=== PATIENT | male | born 1990 | race Caucasian/White ===

== ENCOUNTER 2016-10-27 08:41 | Emergency (ER) | payer BC, OTHER ==
[2016-10-27] MEDS ORDERED: KETOROLAC 30 MG/ML VIAL (J1885) As Ordered ONE (09:35)
[2016-10-27] MEDS ORDERED: ONDANSETRON 4MG/2ML VIAL (J2405) As Ordered ONE (09:35)
[2016-10-27 09:54] LABS: BASO % 0.7 % (0.0-1.0); EOS # 0.8 K/mm3 (0.0-0.50); EOS % 15.2 % (0.0-3.0); LARGE UNSTAINED CELL # 0.1 K/mm3 (0.0-0.4); LARGE UNSTAINED CELL % 2.4 % (0.0-4.0); LYMPH # 1.6 K/mm3 (1.5-6.5); MEAN CORPUSCULAR HEMOGLOBIN 30.3 pg (27.0-33.0); MEAN CORPUSCULAR HGB CONC 33.2 g/dl (32.0-36.5); MEAN CORPUSCULAR VOLUME 91.3 fl (80.0-96.0); MONO # 0.3 K/mm3 (0.0-0.8); NEUTROPHILS # 2.7 K/mm3 (1.8-7.7); NEUTROPHILS % 47.8 % (36.0-66.0); PLATELET COUNT, AUTOMATED 286 k/mm3 (150-450); WHITE BLOOD COUNT 5.6 K/mm3 (4.0-10.0)
--- NOTE | 2016-10-27 09:55 | REP ---
Clinical: Renal colic. Comparison: 08/18/2013. Findings: Lung bases clear. Liver, spleen, pancreas, gallbladder, bilateral adrenal glands and right kidney are normal. The left kidney demonstrates few punctate 1 mm nonobstructing renal calculi. There is no evidence for perinephric stranding or hydroureteronephrosis bilaterally. The enteric system is without obstruction or acute inflammatory process. The pelvis demonstrates normal bladder and age appropriate prostate/seminal vesicles. Multiple calcifications in the pelvis are similar to 2013 and likely represent phleboliths. No ascites. No obvious adenopathy. No free air. Surrounding musculoskeletal structures are intact. Impression: 1. Few 1 mm nonobstructing left renal calculi. No further urinary tract pathology appreciated. 2. Multiple rounded calcifications in the pelvis are similar 2013 and likely represent phleboliths. 3. No acute abdominopelvic pathology appreciated. Signed by Walter Figueroa MD 10/27/2016 09:46 A
[2016-10-27 10:20] LABS: ANION GAP 5 MEQ/L (8-16); BLOOD UREA NITROGEN 24 MG/DL (7-18); CALCIUM LEVEL 9.2 MG/DL (8.5-10.1); CARBON DIOXIDE LEVEL 31 MEQ/L (21-32); CHLORIDE LEVEL 107 MEQ/L (98-107); CREATININE FOR GFR 1.12 MG/DL (0.70-1.30); GLOMERULAR FILTRATION RATE > 60.0 (>60); GLUCOSE, FASTING 94 MG/DL (70-105); SODIUM LEVEL 143 MEQ/L (136-145)
--- NOTE | 2016-10-27 10:54 | EDDOCDS ---
Physician Documentation [facility] Name: Sharath Chen Age: 26 yrs Sex: Male : 1990 Arrival Date: 10/27/2016 Time: 08:41 Bed I2 / M2 Private MD: Unknown, Family Dr Disposition: 10/27/16 10:32 Discharged to Home/Self Care. Impression: Low back pain - with few 1mm Left Renal Calculi. - Condition is Stable. - Discharge Instructions: Back Pain, Adult, [id number]. - Prescriptions for Ibuprofen 800 mg Oral Tablet - take 1 tablet by ORAL route every 8 hours As needed take with food; 30 tablet. Zanaflex 4 mg Oral Tablet - take 1 tablet by ORAL route At bedtime As needed; 10 tablet. - Medication Reconciliation, Work Release Form - 2 day, Local Pharmacy Hours form. - Follow up: [facility]; When: 4 - 5 days; Reason: Continuance of care. Follow up: [facility]; When: 1 week; Reason: Recheck today's complaints, Continuance of care. Follow up: Emergency Department; When: As needed; Reason: Worsening of conditions. - Problem is new. - Symptoms are unchanged. Historical: - Allergies: no known allergies; - Home Meds: 1. none - PMHx: Kidney stones; - PSHx: none; - Social history: Smoking status: Patient states was never smoker of tobacco. No barriers to communication noted, The patient speaks fluent Latvian, Speaks appropriately for age. - Family history: Not pertinent. - : The pt / caregiver states he / she is not on anticoagulants. Home medication list is obtained from the patient. - Exposure Risk Screening:: None identified. Vital Signs: 10/27 08:43 BP 109 / 68; Pulse 75; Resp 16; Temp 98(O); Pulse Ox 97% ; Weight 79.38 kg / 175 lbs cmb (R); Height 5 ft. 11 in. (180.34 cm); Pain 7/10; 10:30 BP 104 / 57; Pulse 59; Resp 18; Temp 97.2(O); Pulse Ox 98% on R/A; Pain 5/10; dem1 08:43 Body Mass Index 24.41 (79.38 kg, 180.34 cm) cmb MDM: 09:23 Ondansetron 4 mg IVP once ordered. dk1 09:23 ketorolac 30 mg IVP once ordered. dk1 09:23 IV Saline Lock ordered. dk1 09:24 Basic Metabolic Profile Ordered. EDMS 09:25 CBC with Diff Ordered. EDMS 09:25 Urinalysis Ordered. EDMS 09:25 Urine Culture Ordered. EDMS 09:25 CT ABD & PELVIS: No Contrast Ordered. EDMS 09:31 Financial registration complete. lg 09:55 Urinalysis Reviewed. dk1 09:55 [facility] Payment Agreement was scanned into [facility] and attached to record. lg 10:28 Basic Metabolic Profile Reviewed. dk1 10:28 CBC with Diff Reviewed. dk1 10:28 CT ABD & PELVIS: No Contrast Reviewed. dk1 Administered Medications: 09:46 Drug: Ondansetron 4 mg [ondansetron HCl 2 mg/mL intravenous solution (2 mL)] Route: dls IVP; Site: right antecubital; 09:46 Drug: ketorolac 30 mg [ketorolac 30 mg/mL (1 mL) injection solution (1 mL)] Route: IVP; dls Site: right antecubital; Signatures: Dispatcher [employer] EDMS Ellen Paniagua RN RN dls Evans Marcum, Adebayo Reg lg Franklin Javier RN RN mlb1 Mandeep Morillo PA-C PA-C dk1 The chart was reviewed and I authenticate all verbal orders and agree with the evaluation and treatment provided.Attachments: 09:55 [facility] Payment Agreement lg MTDD
--- NOTE | 2016-10-27 10:54 | EDDOCDS ---
Nurse's Notes [facility] Name: Sharath Chen Age: 26 yrs Sex: Male : 1990 Arrival Date: 10/27/2016 Time: 08:41 Bed I2 / M2 Private MD: Unknown, Family Dr Diagnosis: Low back pain-with few 1mm Left Renal Calculi Presentation: 10/27 08:51 Presenting complaint: Patient states: Right low back pain "on and off for the past few mlb1 weeks". Adult Sepsis Screening: The patient does not have new or worsening altered mentation. Patient's respiratory rate is less than 22. Systolic blood pressure is greater than 100. Patient has a qSOFA score of 0- Negative Sepsis Screen. Suicide/Homicide risk assessment- the patient denies having any suicidal and/or homicidal ideations and does not present with any other emotional, behavioral or mental health complaints. Status: Patient is not a service writer or dependent. Transition of care: patient was not received from another setting of care. 08:51 Acuity: NEVAEH Level 4 mlb1 08:51 Method Of Arrival: Walkin/Carried/Asstd mlb1 Triage Assessment: 08:52 General: Appears in no apparent distress, comfortable, Behavior is appropriate for age, mlb1 cooperative. Pain: Location: right low back Pain currently is 7 out of 10 on a pain scale. HIV screening NA for this visit Offered previously. Historical: - Allergies: no known allergies; - Home Meds: 1. none - PMHx: Kidney stones; - PSHx: none; - Social history: Smoking status: Patient states was never smoker of tobacco. No barriers to communication noted, The patient speaks fluent Uzbek, Speaks appropriately for age. - Family history: Not pertinent. - : The pt / caregiver states he / she is not on anticoagulants. Home medication list is obtained from the patient. - Exposure Risk Screening:: None identified. Screenin:48 Screening information is obtained from the patient. Primary language is Uzbek. Fall dls risk: No risks identified. Assistance ADL's: requires no assistance with activities of daily living. Abuse/DV Screen: The patient / caregiver reports he/she is: not in a situation that causes fear, pain or injury. Nutritional screening: No deficits noted. Advance Directives: Currently, there is no health care proxy. There is no active DNR order. There is no living will. There is no Power of Boring Machine Operator Vertical. home support is adequate. Assessment: 09:48 General: Appears slender, uncomfortable, well developed, well nourished, well groomed, dls Behavior is cooperative. Awake, alert, oriented. Skin warm and dry. Moves all extremities. Bilateral breath sounds clear. Respirations unlabored. Abdomen soft, non-tender. No apparent distress. The patient / caregiver is instructed regarding the plan of care and ED course. Vital Signs: 08:43 BP 109 / 68; Pulse 75; Resp 16; Temp 98(O); Pulse Ox 97% ; Weight 79.38 kg (R); Height cmb 5 ft. 11 in. (180.34 cm); Pain 7/10; 10:30 BP 104 / 57; Pulse 59; Resp 18; Temp 97.2(O); Pulse Ox 98% on R/A; Pain 5/10; dem1 08:43 Body Mass Index 24.41 (79.38 kg, 180.34 cm) cmb Vitals: 08:43 Log In Time: October 27, 2016 at 08:41. cmb ED Course: 08:42 Patient visited by Gunjan Silverio. cmb 08:42 Patient moved to Waiting cmb 08:43 Unknown, Family is Private Physician. cmb 08:44 Patient moved to Pre RCE cmb 08:52 Triage Initiated mlb1 08:53 Patient visited by Franklin Javier RN. mlb1 08:53 Patient moved to Triage 2 mlb1 09:14 [facility] Mor[facility]. dk1 09:14 Jose Martinez MD is Attending Physician. dk1 09:19 Patient visited by Mandeep Morillo PA-C. dk1 09:29 Urinalysis Sent. mlb1 09:30 Patient moved to I2 / M2 mlb1 09:30 Urine Culture Sent. mlb1 09:46 Basic Metabolic Profile Sent. dls 09:46 CBC with Diff Sent. dls 09:48 Patient has correct armband on for positive identification. Placed in gown. Bed in low dls position. Call light in reach. 09:49 Inserted saline lock: 20 gauge in right antecubital area and blood collected. The dls patient tolerated the procedure well. No procedures done that require assistance. Labs drawn. (by ED staff). 09:55 [facility] [place] Agreement was scanned into [employer] and attached to record. lg 09:56 CT ABD & PELVIS: No Contrast Returned. EDMS 10:27 Patient visited by Gonzalo Ramirez. dem1 10:30 Patient visited by Gonzalo Ramirez. dem1 10:32 [facility] is Referral Physician. dk1 10:32 [facility] is Referral Physician. dk1 10:52 Discontinued IV lock intact, bleeding controlled, pressure dressing applied, No dls redness/swelling at site. Administered Medications: 09:46 Drug: Ondansetron 4 mg [ondansetron HCl 2 mg/mL intravenous solution (2 mL)] Route: dls IVP; Site: right antecubital; 09:46 Drug: ketorolac 30 mg [ketorolac 30 mg/mL (1 mL) injection solution (1 mL)] Route: IVP; dls Site: right antecubital; Order Results: Lab Order: Basic Metabolic Profile; SPEC'M 10/27/16 09:38 Test: GLUCOSE, FASTING; Value: 94; Range: 70-105; Units: MG/DL; Status: F Test: BLOOD UREA NITROGEN; Value: 24; Range: 7-18; Abnormal: Above high normal; Units: MG/DL; Status: F Test: CREATININE FOR GFR; Value: 1.12; Range: 0.70-1.30; Units: MG/DL; Status: F Test: GLOMERULAR FILTRATION RATE; Value: > 60.0; Range: >60; Status: F Test: SODIUM LEVEL; Value: 143; Range: 136-145; Units: MEQ/L; Status: F Test: POTASSIUM SERUM; Value: 5.0; Range: 3.5-5.1; Units: MEQ/L; Status: F Test: CHLORIDE LEVEL; Value: 107; Range: 98-107; Units: MEQ/L; Status: F Test: CARBON DIOXIDE LEVEL; Value: 31; Range: 21-32; Units: MEQ/L; Status: F Test: ANION GAP; Value: 5; Range: 8-16; Abnormal: Below low normal; Units: MEQ/L; Status: F Test: CALCIUM LEVEL; Value: 9.2; Range: 8.5-10.1; Units: MG/DL; Status: F Test Note: ; Units are mL/min/1.73 m2 Chronic Kidney Disease Staging per NKF: Stage I & II GFR >=60 Normal to Mildly Decreased Stage III GFR 30-59 Moderately Decreased Stage IV GFR 15-29 Severely Decreased Stage V GFR <15 Very Little GFR Left ESRD GFR <15 on CERTIFIED SUBSTANCE ABUSE COUNSELOR Lab Order: CBC with Diff; TASNEEM'M 10/27/16 09:38 Test: WHITE BLOOD COUNT; Value: 5.6; Range: 4.0-10.0; Units: K/mm3; Status: F Test: RED BLOOD COUNT; Value: 5.08; Range: 4.30-6.10; Units: M/mm3; Status: F Test: HEMOGLOBIN; Value: 15.4; Range: 14.0-18.0; Units: g/dl; Status: F Test: HEMATOCRIT; Value: 46.4; Range: 42.0-52.0; Units: %; Status: F Test: MEAN CORPUSCULAR VOLUME; Value: 91.3; Range: 80.0-96.0; Units: fl; Status: F Test: MEAN CORPUSCULAR HEMOGLOBIN; Value: 30.3; Range: 27.0-33.0; Units: pg; Status: F Test: MEAN CORPUSCULAR HGB CONC; Value: 33.2; Range: 32.0-36.5; Units: g/dl; Status: F Test: RED CELL DISTRIBUTION WIDTH; Value: 12.0; Range: 11.5-14.5; Units: %; Status: F Test: PLATELET COUNT, AUTOMATED; Value: 286; Range: 150-450; Units: k/mm3; Status: F Test: NEUTROPHILS %; Value: 47.8; Range: 36.0-66.0; Units: %; Status: F Test: LYMPH %; Value: 28.0; Range: 24.0-44.0; Units: %; Status: F Test: MONO %; Value: 6.0; Range: 0.0-5.0; Abnormal: Above high normal; Units: %; Status: F Test: EOS %; Value: 15.2; Range: 0.0-3.0; Abnormal: Above high normal; Units: %; Status: F Test: BASO %; Value: 0.7; Range: 0.0-1.0; Units: %; Status: F Test: LARGE UNSTAINED CELL %; Value: 2.4; Range: 0.0-4.0; Units: %; Status: F Test: NEUTROPHILS #; Value: 2.7; Range: 1.8-7.7; Units: K/mm3; Status: F Test: LYMPH #; Value: 1.6; Range: 1.5-6.5; Units: K/mm3; Status: F Test: MONO #; Value: 0.3; Range: 0.0-0.8; Units: K/mm3; Status: F Test: EOS #; Value: 0.8; Range: 0.0-0.50; Abnormal: Above high normal; Units: K/mm3; Status: F Test: BASO #; Value: 0.0; Range: 0.0-0.2; Units: K/mm3; Status: F Test: LARGE UNSTAINED CELL #; Value: 0.1; Range: 0.0-0.4; Units: K/mm3; Status: F Lab Order: Urinalysis; SPEC'M 10/27/16 09:26 Test: APPEARANCE, URINE; Value: CLEAR; Range: CLEAR; Status: F Test: COLOR, URINE; Value: YELLOW; Range: YELLOW; Status: F Test: PH,URINE; Value: 7.0; Range: 5.0-9.0; Units: UNITS; Status: F Test: SPECIFIC GRAVITY URINE AUTO; Value: 1.020; Range: 1.002-1.035; Status: F Test: PROTEIN, URINE AUTO; Value: NEGATIVE; Range: NEGATIVE; Units: mg/dL; Status: F Test: GLUCOSE, URINE (UA) AUTO; Value: NEGATIVE; Range: NEGATIVE; Units: mg/dL; Status: F Test: KETONE, URINE AUTO; Value: NEGATIVE; Range: NEGATIVE; Units: mg/dL; Status: F Test: UROBILINOGEN, URINE AUTO; Value: 0.2; Range: 0.0-2.0; Units: mg/dL; Status: F Test: BILIRUBIN, URINE AUTO; Value: NEGATIVE; Range: NEGATIVE; Status: F Test: NITRITE, URINE AUTO; Value: NEGATIVE; Range: NEGATIVE; Status: F Test: LEUKOCYTE ESTERASE, URINE AUTO; Value: NEGATIVE; Range: NEGATIVE; Status: F Test: BLOOD, URINE BLOOD; Value: NEGATIVE; Range: NEGATIVE; Status: F Test: WBC, URINE AUTO; Value: 0; Range: 0-3; Units: /HPF; Status: F Test: RBC, URINE AUTO; Value: 1; Range: 0-3; Units: /HPF; Status: F Test: BACTERIA, URINE AUTO; Value: NEGATIVE; Range: NEGATIVE; Status: F Test: SQUAMOUS EPITHELIAL CELL UR AU; Value: 0; Range: 0-6; Units: /HPF; Status: F Test: HYALINE CAST, URINE AUTO; Value: 0; Range: 0-1; Units: /LPF; Status: F Radiology Order: CT ABD & PELVIS: No Contrast Test: CT ABD & PELVIS: No Contrast REASON FOR EXAMINATION: Renal colic; Clinical: Renal colic.; ; Comparison: 08/18/2013.; ; Findings:; Lung bases clear.; ; Liver, spleen, pancreas, gallbladder, bilateral adrenal glands and right kidney; are normal. The left kidney demonstrates few punctate 1 mm nonobstructing renal; calculi. There is no evidence for perinephric stranding or hydroureteronephrosis; bilaterally. The enteric system is without obstruction or acute inflammatory; process. The pelvis demonstrates normal bladder and age appropriate; prostate/seminal vesicles. Multiple calcifications in the pelvis are similar to; 2012 and likely represent phleboliths. No ascites. No obvious adenopathy. No; free air. Surrounding musculoskeletal structures are intact.; ; Impression:; 1. Few 1 mm nonobstructing left renal calculi. No further urinary tract; pathology appreciated.; 2. Multiple rounded calcifications in the pelvis are similar 2012 and likely; represent phleboliths.; 3. No acute abdominopelvic pathology appreciated.; ; ; Signed by; Walter Figueroa MD 10/27/2016 09:46 A; Outcome: 10:32 Discharge ordered by Provider. dk1 10:52 Discharge Assessment: Patient awake, alert and oriented x 3. No cognitive and/or dls functional deficits noted. Patient verbalized understanding of disposition instructions. patient administered narcotics - no. The following High Risk Discharge criteria are identified: None. Discharged to home ambulatory. Condition: stable. Discharge instructions given to patient, Instructed on discharge instructions, follow up and referral plans. medication usage, Demonstrated understanding of instructions, medications, Pt was receptive of discharge instructions/ teaching. Prescriptions given X 2, Work note provided to patient. CT Study completed. Property sent home with patient. 10:54 Patient left the ED. dls Signatures: Dispatcher [employer] EDMS Ellen Paniagua, RN RN dls Evans Marcum, Adebayo Reg lg Franklin Javier RN RN mlb1 Mandeep Morillo, PA-C PA-C aidee1 Gonzalo Ramirez1 Gunjan Silverio MTDD
--- NOTE | 2016-10-29 11:55 | EDDOCDS ---
Physician Documentation [facility] Name: Sharath Chen Age: 26 yrs Sex: Male : 1990 Arrival Date: 10/27/2016 Time: 08:41 Bed I2 / M2 Private MD: Unknown, Family Dr Disposition: 10/27/16 10:32 Discharged to Home/Self Care. Impression: Low back pain - with few 1mm Left Renal Calculi. - Condition is Stable. - Discharge Instructions: Back Pain, Adult, [id number]. - Prescriptions for Ibuprofen 800 mg Oral Tablet - take 1 tablet by ORAL route every 8 hours As needed take with food; 30 tablet. Zanaflex 4 mg Oral Tablet - take 1 tablet by ORAL route At bedtime As needed; 10 tablet. - Medication Reconciliation, Work Release Form - 2 day, Local Pharmacy Hours form. - Follow up: [facility]; When: 4 - 5 days; Reason: Continuance of care. Follow up: [facility]; When: 1 week; Reason: Recheck today's complaints, Continuance of care. Follow up: Emergency Department; When: As needed; Reason: Worsening of conditions. - Problem is new. - Symptoms are unchanged. Historical: - Allergies: no known allergies; - Home Meds: 1. none - PMHx: Kidney stones; - PSHx: none; - Social history: Smoking status: Patient states was never smoker of tobacco. No barriers to communication noted, The patient speaks fluent Korean, Speaks appropriately for age. - Family history: Not pertinent. - : The pt / caregiver states he / she is not on anticoagulants. Home medication list is obtained from the patient. - Exposure Risk Screening:: None identified. Vital Signs: 10/27 08:43 BP 109 / 68; Pulse 75; Resp 16; Temp 98(O); Pulse Ox 97% ; Weight 79.38 kg / 175 lbs cmb (R); Height 5 ft. 11 in. (180.34 cm); Pain 7/10; 10:30 BP 104 / 57; Pulse 59; Resp 18; Temp 97.2(O); Pulse Ox 98% on R/A; Pain 5/10; dem1 08:43 Body Mass Index 24.41 (79.38 kg, 180.34 cm) cmb MDM: 09:23 Ondansetron 4 mg IVP once ordered. dk1 09:23 ketorolac 30 mg IVP once ordered. dk1 09:23 IV Saline Lock ordered. dk1 09:24 Basic Metabolic Profile Ordered. EDMS 09:25 CBC with Diff Ordered. EDMS 09:25 Urinalysis Ordered. EDMS 09:25 Urine Culture Ordered. EDMS 09:25 CT ABD & PELVIS: No Contrast Ordered. EDMS 09:31 Financial registration complete. lg 09:55 Urinalysis Reviewed. dk1 09:55 [facility] Payment Agreement was scanned into [employer] and attached to record. lg 10:28 Basic Metabolic Profile Reviewed. dk1 10:28 CBC with Diff Reviewed. dk1 10:28 CT ABD & PELVIS: No Contrast Reviewed. dk1 15:58 T-Sheet-- Draft Copy was scanned into [employer] and attached to record. klr Administered Medications: 09:46 Drug: Ondansetron 4 mg [ondansetron HCl 2 mg/mL intravenous solution (2 mL)] Route: dls IVP; Site: right antecubital; 09:46 Drug: ketorolac 30 mg [ketorolac 30 mg/mL (1 mL) injection solution (1 mL)] Route: IVP; dls Site: right antecubital; Signatures: [facility] Ellen Zhu RN RN Evans Tejeda Reg Reg lg Barney, Michael B RN RN mlb1 Mandeep Morillo, SHER PANuha Nuñez The chart was reviewed and I authenticate all verbal orders and agree with the evaluation and treatment provided.Attachments: 09:55 [facility] Payment Agreement lg 15:58 T-Sheet-- Draft Copy klr Chart Complete MTDD
--- NOTE | 2016-10-29 11:55 | EDDOCDS ---
Nurse's Notes [facility] Name: Sharath Chen Age: 26 yrs Sex: Male : 1990 Arrival Date: 10/27/2016 Time: 08:41 Bed I2 / M2 Private MD: Unknown, Family Dr Diagnosis: Low back pain-with few 1mm Left Renal Calculi Presentation: 10/27 08:51 Presenting complaint: Patient states: Right low back pain "on and off for the past few mlb1 weeks". Adult Sepsis Screening: The patient does not have new or worsening altered mentation. Patient's respiratory rate is less than 22. Systolic blood pressure is greater than 100. Patient has a qSOFA score of 0- Negative Sepsis Screen. Suicide/Homicide risk assessment- the patient denies having any suicidal and/or homicidal ideations and does not present with any other emotional, behavioral or mental health complaints. 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 Transition of care: patient was not received from another setting of care. 08:51 Acuity: NEVAEH Level 4 mlb1 08:51 Method Of Arrival: Walkin/Carried/Asstd mlb1 Triage Assessment: 08:52 General: Appears in no apparent distress, comfortable, Behavior is appropriate for age, mlb1 cooperative. Pain: Location: right low back Pain currently is 7 out of 10 on a pain scale. HIV screening NA for this visit Offered previously. Historical: - Allergies: no known allergies; - Home Meds: 1. none - PMHx: Kidney stones; - PSHx: none; - Social history: Smoking status: Patient states was never smoker of tobacco. No barriers to communication noted, The patient speaks fluent Pashto, Speaks appropriately for age. - Family history: Not pertinent. - : The pt / caregiver states he / she is not on anticoagulants. Home medication list is obtained from the patient. - Exposure Risk Screening:: None identified. Screenin:48 Screening information is obtained from the patient. Primary language is Pashto. Fall dls risk: No risks identified. Assistance ADL's: requires no assistance with activities of daily living. Abuse/DV Screen: The patient / caregiver reports he/she is: not in a situation that causes fear, pain or injury. Nutritional screening: No deficits noted. Advance Directives: Currently, there is no health care proxy. There is no active DNR order. There is no living will. 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 home support is adequate. Assessment: 09:48 General: Appears slender, uncomfortable, well developed, well nourished, well groomed, dls Behavior is cooperative. Awake, alert, oriented. Skin warm and dry. Moves all extremities. Bilateral breath sounds clear. Respirations unlabored. Abdomen soft, non-tender. No apparent distress. The patient / caregiver is instructed regarding the plan of care and ED course. Vital Signs: 08:43 BP 109 / 68; Pulse 75; Resp 16; Temp 98(O); Pulse Ox 97% ; Weight 79.38 kg (R); Height cmb 5 ft. 11 in. (180.34 cm); Pain 7/10; 10:30 BP 104 / 57; Pulse 59; Resp 18; Temp 97.2(O); Pulse Ox 98% on R/A; Pain 5/10; dem1 08:43 Body Mass Index 24.41 (79.38 kg, 180.34 cm) cmb Vitals: 08:43 Log In Time: October 27, 2016 at 08:41. cmb ED Course: 08:42 Patient visited by Gunjan Silverio. cmb 08:42 Patient moved to Waiting cmb 08:43 Unknown, Family is Private Physician. cmb 08:44 Patient moved to Pre RCE cmb 08:52 Triage Initiated mlb1 08:53 Patient visited by Franklin Javier RN. mlb1 08:53 Patient moved to Triage 2 mlb1 09:14 [facility] dk1 09:14 Jose Martinez MD is Attending Physician. dk1 09:19 Patient visited by Mandeep Morillo PA-C. dk1 09:29 Urinalysis Sent. mlb1 09:30 Patient moved to I2 / M2 mlb1 09:30 Urine Culture Sent. mlb1 09:46 Basic Metabolic Profile Sent. dls 09:46 CBC with Diff Sent. dls 09:48 Patient has correct armband on for positive identification. Placed in gown. Bed in low dls position. Call light in reach. 09:49 Inserted saline lock: 20 gauge in right antecubital area and blood collected. The dls patient tolerated the procedure well. No procedures done that require assistance. Labs drawn. (by ED staff). 09:55 [facility] Payment Agreement was scanned into CRMnext and attached to record. lg 09:56 CT ABD & PELVIS: No Contrast Returned. EDMS 10:27 Patient visited by Gonzalo Ramirez. dem1 10:30 Patient visited by Gonzalo Ramirez. dem1 10:32 [facility] is Referral Physician. dk1 10:32 [facility] is Referral Physician. dk1 10:52 Discontinued IV lock intact, bleeding controlled, pressure dressing applied, No dls redness/swelling at site. 15:58 T-Sheet-- Draft Copy was scanned into CRMnext and attached to record. klr Administered Medications: 09:46 Drug: Ondansetron 4 mg [ondansetron HCl 2 mg/mL intravenous solution (2 mL)] Route: dls IVP; Site: right antecubital; 09:46 Drug: ketorolac 30 mg [ketorolac 30 mg/mL (1 mL) injection solution (1 mL)] Route: IVP; dls Site: right antecubital; Order Results: Lab Order: Basic Metabolic Profile; SPEC'M 10/27/16 09:38 Test: GLUCOSE, FASTING; Value: 94; Range: 70-105; Units: MG/DL; Status: F Test: BLOOD UREA NITROGEN; Value: 24; Range: 7-18; Abnormal: Above high normal; Units: MG/DL; Status: F Test: CREATININE FOR GFR; Value: 1.12; Range: 0.70-1.30; Units: MG/DL; Status: F Test: GLOMERULAR FILTRATION RATE; Value: > 60.0; Range: >60; Status: F Test: SODIUM LEVEL; Value: 143; Range: 136-145; Units: MEQ/L; Status: F Test: POTASSIUM SERUM; Value: 5.0; Range: 3.5-5.1; Units: MEQ/L; Status: F Test: CHLORIDE LEVEL; Value: 107; Range: 98-107; Units: MEQ/L; Status: F Test: CARBON DIOXIDE LEVEL; Value: 31; Range: 21-32; Units: MEQ/L; Status: F Test: ANION GAP; Value: 5; Range: 8-16; Abnormal: Below low normal; Units: MEQ/L; Status: F Test: CALCIUM LEVEL; Value: 9.2; Range: 8.5-10.1; Units: MG/DL; Status: F Test Note: ; Units are mL/min/1.73 m2 Chronic Kidney Disease Staging per NKF: Stage I & II GFR >=60 Normal to Mildly Decreased Stage III GFR 30-59 Moderately Decreased Stage IV GFR 15-29 Severely Decreased Stage V GFR <15 Very Little GFR Left ESRD GFR <15 on RECONCILIATION COORDINATOR Lab Order: CBC with Diff; SPEC'M 10/27/16 09:38 Test: WHITE BLOOD COUNT; Value: 5.6; Range: 4.0-10.0; Units: K/mm3; Status: F Test: RED BLOOD COUNT; Value: 5.08; Range: 4.30-6.10; Units: M/mm3; Status: F Test: HEMOGLOBIN; Value: 15.4; Range: 14.0-18.0; Units: g/dl; Status: F Test: HEMATOCRIT; Value: 46.4; Range: 42.0-52.0; Units: %; Status: F Test: MEAN CORPUSCULAR VOLUME; Value: 91.3; Range: 80.0-96.0; Units: fl; Status: F Test: MEAN CORPUSCULAR HEMOGLOBIN; Value: 30.3; Range: 27.0-33.0; Units: pg; Status: F Test: MEAN CORPUSCULAR HGB CONC; Value: 33.2; Range: 32.0-36.5; Units: g/dl; Status: F Test: RED CELL DISTRIBUTION WIDTH; Value: 12.0; Range: 11.5-14.5; Units: %; Status: F Test: PLATELET COUNT, AUTOMATED; Value: 286; Range: 150-450; Units: k/mm3; Status: F Test: NEUTROPHILS %; Value: 47.8; Range: 36.0-66.0; Units: %; Status: F Test: LYMPH %; Value: 28.0; Range: 24.0-44.0; Units: %; Status: F Test: MONO %; Value: 6.0; Range: 0.0-5.0; Abnormal: Above high normal; Units: %; Status: F Test: EOS %; Value: 15.2; Range: 0.0-3.0; Abnormal: Above high normal; Units: %; Status: F Test: BASO %; Value: 0.7; Range: 0.0-1.0; Units: %; Status: F Test: LARGE UNSTAINED CELL %; Value: 2.4; Range: 0.0-4.0; Units: %; Status: F Test: NEUTROPHILS #; Value: 2.7; Range: 1.8-7.7; Units: K/mm3; Status: F Test: LYMPH #; Value: 1.6; Range: 1.5-6.5; Units: K/mm3; Status: F Test: MONO #; Value: 0.3; Range: 0.0-0.8; Units: K/mm3; Status: F Test: EOS #; Value: 0.8; Range: 0.0-0.50; Abnormal: Above high normal; Units: K/mm3; Status: F Test: BASO #; Value: 0.0; Range: 0.0-0.2; Units: K/mm3; Status: F Test: LARGE UNSTAINED CELL #; Value: 0.1; Range: 0.0-0.4; Units: K/mm3; Status: F Lab Order: Urinalysis; SPEC'M 10/27/16 09:26 Test: APPEARANCE, URINE; Value: CLEAR; Range: CLEAR; Status: F Test: COLOR, URINE; Value: YELLOW; Range: YELLOW; Status: F Test: PH,URINE; Value: 7.0; Range: 5.0-9.0; Units: UNITS; Status: F Test: SPECIFIC GRAVITY URINE AUTO; Value: 1.020; Range: 1.002-1.035; Status: F Test: PROTEIN, URINE AUTO; Value: NEGATIVE; Range: NEGATIVE; Units: mg/dL; Status: F Test: GLUCOSE, URINE (UA) AUTO; Value: NEGATIVE; Range: NEGATIVE; Units: mg/dL; Status: F Test: KETONE, URINE AUTO; Value: NEGATIVE; Range: NEGATIVE; Units: mg/dL; Status: F Test: UROBILINOGEN, URINE AUTO; Value: 0.2; Range: 0.0-2.0; Units: mg/dL; Status: F Test: BILIRUBIN, URINE AUTO; Value: NEGATIVE; Range: NEGATIVE; Status: F Test: NITRITE, URINE AUTO; Value: NEGATIVE; Range: NEGATIVE; Status: F Test: LEUKOCYTE ESTERASE, URINE AUTO; Value: NEGATIVE; Range: NEGATIVE; Status: F Test: BLOOD, URINE BLOOD; Value: NEGATIVE; Range: NEGATIVE; Status: F Test: WBC, URINE AUTO; Value: 0; Range: 0-3; Units: /HPF; Status: F Test: RBC, URINE AUTO; Value: 1; Range: 0-3; Units: /HPF; Status: F Test: BACTERIA, URINE AUTO; Value: NEGATIVE; Range: NEGATIVE; Status: F Test: SQUAMOUS EPITHELIAL CELL UR AU; Value: 0; Range: 0-6; Units: /HPF; Status: F Test: HYALINE CAST, URINE AUTO; Value: 0; Range: 0-1; Units: /LPF; Status: F Lab Order: Urine Culture; SPEC'M 10/27/16 09:26 Test: URINE CULTURE; Value: <EXTERNAL COMMENT eCWMed> FULL REPORT IN LAB NOTES (eCW and Medent).; Status: F Test: URINE CULTURE; Value: URINE CULTURE RESULT NO GROWTH; Status: F Radiology Order: CT ABD & PELVIS: No Contrast Test: CT ABD & PELVIS: No Contrast REASON FOR EXAMINATION: Renal colic; Clinical: Renal colic.; ; Comparison: 08/18/2013.; ; Findings:; Lung bases clear.; ; Liver, spleen, pancreas, gallbladder, bilateral adrenal glands and right kidney; are normal. The left kidney demonstrates few punctate 1 mm nonobstructing renal; calculi. There is no evidence for perinephric stranding or hydroureteronephrosis; bilaterally. The enteric system is without obstruction or acute inflammatory; process. The pelvis demonstrates normal bladder and age appropriate; prostate/seminal vesicles. Multiple calcifications in the pelvis are similar to; 2012 and likely represent phleboliths. No ascites. No obvious adenopathy. No; free air. Surrounding musculoskeletal structures are intact.; ; Impression:; 1. Few 1 mm nonobstructing left renal calculi. No further urinary tract; pathology appreciated.; 2. Multiple rounded calcifications in the pelvis are similar 2012 and likely; represent phleboliths.; 3. No acute abdominopelvic pathology appreciated.; ; ; Signed by; Walter Figueroa MD 10/27/2016 09:46 A; Outcome: 10:32 Discharge ordered by Provider. dk1 10:52 Discharge Assessment: Patient awake, alert and oriented x 3. No cognitive and/or dls functional deficits noted. Patient verbalized understanding of disposition instructions. patient administered narcotics - no. The following High Risk Discharge criteria are identified: None. Discharged to home ambulatory. Condition: stable. Discharge instructions given to patient, Instructed on discharge instructions, follow up and referral plans. medication usage, Demonstrated understanding of instructions, medications, Pt was receptive of discharge instructions/ teaching. Prescriptions given X 2, Work note provided to patient. CT Study completed. Property sent home with patient. 10:54 Patient left the ED. dls Signatures: Dispatcher [employer] EDMS Ellen Paniagua, RN RN dls Evans Marcum Reg Reg lg Barney, Michael B RN RN mlb1 Mandeep Morillo, SHER PALuda dk1 Gonzalo Ramirez1 Gunjan Silverio Kathie klr Chart Complete MTDRandal
--- NOTE | 2016-10-29 11:55 | EDDOCDS ---
Physician Documentation [facility] Name: Sharath Chen Age: 26 yrs Sex: Male : 1990 Arrival Date: 10/27/2016 Time: 08:41 Bed I2 / M2 Private MD: Unknown, Family Dr Disposition: 10/27/16 10:32 Discharged to Home/Self Care. Impression: Low back pain - with few 1mm Left Renal Calculi. - Condition is Stable. - Discharge Instructions: Back Pain, Adult, [id number]. - Prescriptions for Ibuprofen 800 mg Oral Tablet - take 1 tablet by ORAL route every 8 hours As needed take with food; 30 tablet. Zanaflex 4 mg Oral Tablet - take 1 tablet by ORAL route At bedtime As needed; 10 tablet. - Medication Reconciliation, Work Release Form - 2 day, Local Pharmacy Hours form. - Follow up: [facility]; When: 4 - 5 days; Reason: Continuance of care. Follow up: [facility]; When: 1 week; Reason: Recheck today's complaints, Continuance of care. Follow up: Emergency Department; When: As needed; Reason: Worsening of conditions. - Problem is new. - Symptoms are unchanged. Historical: - Allergies: no known allergies; - Home Meds: 1. none - PMHx: Kidney stones; - PSHx: none; - Social history: Smoking status: Patient states was never smoker of tobacco. No barriers to communication noted, The patient speaks fluent Yoruba, Speaks appropriately for age. - Family history: Not pertinent. - : The pt / caregiver states he / she is not on anticoagulants. Home medication list is obtained from the patient. - Exposure Risk Screening:: None identified. Vital Signs: 10/27 08:43 BP 109 / 68; Pulse 75; Resp 16; Temp 98(O); Pulse Ox 97% ; Weight 79.38 kg / 175 lbs cmb (R); Height 5 ft. 11 in. (180.34 cm); Pain 7/10; 10:30 BP 104 / 57; Pulse 59; Resp 18; Temp 97.2(O); Pulse Ox 98% on R/A; Pain 5/10; dem1 08:43 Body Mass Index 24.41 (79.38 kg, 180.34 cm) cmb MDM: 09:23 Ondansetron 4 mg IVP once ordered. dk1 09:23 ketorolac 30 mg IVP once ordered. dk1 09:23 IV Saline Lock ordered. dk1 09:24 Basic Metabolic Profile Ordered. EDMS 09:25 CBC with Diff Ordered. EDMS 09:25 Urinalysis Ordered. EDMS 09:25 Urine Culture Ordered. EDMS 09:25 CT ABD & PELVIS: No Contrast Ordered. EDMS 09:31 Financial registration complete. lg 09:55 Urinalysis Reviewed. dk1 09:55 [facility] Payment Agreement was scanned into [employer] and attached to record. lg 10:28 Basic Metabolic Profile Reviewed. dk1 10:28 CBC with Diff Reviewed. dk1 10:28 CT ABD & PELVIS: No Contrast Reviewed. dk1 15:58 T-Sheet-- Draft Copy was scanned into [employer] and attached to record. klr Administered Medications: 09:46 Drug: Ondansetron 4 mg [ondansetron HCl 2 mg/mL intravenous solution (2 mL)] Route: dls IVP; Site: right antecubital; 09:46 Drug: ketorolac 30 mg [ketorolac 30 mg/mL (1 mL) injection solution (1 mL)] Route: IVP; dls Site: right antecubital; Signatures: Dispatcher [facility] Ellen Zhu RN RN Evans Tejeda Reg Reg lg Barney, Michael B RN RN mlb1 Mandeep Morillo, SHER PANuha Nuñez The chart was reviewed and I authenticate all verbal orders and agree with the evaluation and treatment provided.Attachments: 09:55 [facility] Payment Agreement lg 15:58 T-Sheet-- Draft Copy klr Chart Complete MTDD
== END 2016-10-27 10:54 | disposition home or self-care (01) ==
LOC: M ED 08:41
DX: N20.0 Calculus of kidney (principal)
CPT/HCPCS: 36415; 74176; 80048; 81001; 85025; 87086; 96374; 96375; 99284; J1885; J2405

== ENCOUNTER 2017-02-09 10:39 | Emergency (ER) | payer BC, OTHER ==
[~2017-02-09] VITALS: Ht 180.3 cm; Wt 804.7 kg
[2017-02-09] MEDS ORDERED: NORCO, ANEXSIA 5/325MG TABLET (HYDROcodone/ACETAMINOPHEN) PO ONE (11:15)
[2017-02-09 11:41] LABS: BASO % 0.8 % (0.0-1.0); EOS # 0.7 K/mm3 (0.0-0.50); EOS % 13.1 % (0.0-3.0); LARGE UNSTAINED CELL # 0.1 K/mm3 (0.0-0.4); LARGE UNSTAINED CELL % 2.3 % (0.0-4.0); LYMPH # 1.9 K/mm3 (1.5-6.5); LYMPH % 32.2 % (24.0-44.0); MEAN CORPUSCULAR HEMOGLOBIN 31.8 pg (27.0-33.0); MEAN CORPUSCULAR HGB CONC 34.5 g/dl (32.0-36.5); MEAN CORPUSCULAR VOLUME 92.2 fl (80.0-96.0); MONO # 0.3 K/mm3 (0.0-0.8); MONO % 4.9 % (0.0-5.0); NEUTROPHILS # 2.6 K/mm3 (1.8-7.7); NEUTROPHILS % 46.7 % (36.0-66.0); PLATELET COUNT, AUTOMATED 262 k/mm3 (150-450); RED CELL DISTRIBUTION WIDTH 12.6 % (11.5-14.5); WHITE BLOOD COUNT 5.5 K/mm3 (4.0-10.0)
[2017-02-09 11:48] LABS: ALBUMIN/GLOBULIN RATIO 1.43 (1.00-1.93); ALKALINE PHOSPHATASE 96 U/L (45-117); ALT/SGPT 26 U/L (12-78); ANION GAP 7 MEQ/L (8-16); AST/SGOT 20 U/L (15-37); BILIRUBIN,TOTAL 0.5 MG/DL (0.2-1.0); BLOOD UREA NITROGEN 19 MG/DL (7-18); CALCIUM LEVEL 8.1 MG/DL (8.5-10.1); CARBON DIOXIDE LEVEL 26 MEQ/L (21-32); CHLORIDE LEVEL 110 MEQ/L (98-107); CREATININE FOR GFR 1.02 MG/DL (0.70-1.30); GLOMERULAR FILTRATION RATE > 60.0 (>60); GLUCOSE, FASTING 77 MG/DL (70-105); POTASSIUM SERUM 4.2 MEQ/L (3.5-5.1); SODIUM LEVEL 143 MEQ/L (136-145); TOTAL PROTEIN 6.8 GM/DL (6.4-8.2)
--- NOTE | 2017-02-09 11:52 | REP ---
CT abdomen pelvis without IV and oral contrast: Comparisons are 08/18/2013 and 10/27/2016. There are two tiny left renal calculi. There were two left renal calculi on 10/27/2016. However, he second calcification noted on 10/27/2016 is no longer identified. On the current study is a faintly visible calculus in the inferior left renal pelvis in a different location than the second calculus identified on 10/27/2016. Both of the calculi today appear to be in different locations than on 08/18/2013. No right renal calculi are identified. There is no hydronephrosis or hydroureter. There are calcifications in the pelvis, stable and unchanged, likely phleboliths. However, there is a 3 mm calcification adjacent to the left acetabular roof on image 115 that is near the location of the distal left ureter. This calcification is unchanged from both prior studies, likely a phlebolith, however I am unable to identify the left ureter with certainty on this image. Therefore, a CT urogram might be worthwhile to locate the left ureter in relation to this pelvic calcification. There are other pelvic calcifications compatible with phleboliths. The visualized lung mcfarland are unremarkable. The unenhanced hepatic parenchyma, gallbladder, pancreas, spleen, adrenals, abdominal aorta, bowel and mesentery are unremarkable. Pelvis: The appendix has a normal appearance. There is no ascites or adenopathy. The bladder and pelvic bowel loops are unremarkable. Impression: Left renal calculi as described. No right renal calculi. Small pelvic calculus adjacent to the left acetabular roof, unchanged from the prior studies, near the location of the left ureter. I cannot identify the left ureter with certainty on the image of this calcification. There is no hydronephrosis. However, a CT urogram might be worth while to establish location of left ureter relation to this calcification. Signed by Jesse Scruggs MD 02/09/2017 11:43 A
[2017-02-09] MEDS ORDERED: FLOM5CAP PO (11:57)
[2017-02-09] MEDS ORDERED: TYLE325T5 PO (11:59)
[2017-02-09] MEDS ORDERED: NAPR500T2 PO (12:00)
[2017-02-09] MEDS ORDERED: TAMSULOSIN 0.4 MG CAP PO ONE (12:00)
[2017-02-09 12:08] VITALS: BP 101/56
== END 2017-02-09 12:25 | disposition home or self-care (01) ==
LOC: M ED 10:53
DX: N20.0 Calculus of kidney (principal); Z79.899 Other long term (current) drug therapy; Z87.891 Personal history of nicotine dependence

== ENCOUNTER 2020-01-24 18:07 | Inpatient (IN) | payer BC, OTHER, SELFPAY ==
[~2020-01-24] VITALS: Ht 180.3 cm; Wt 77.3 kg
[~2020-01-24 18:07] MED LIST: FLOM0.4C39 PO; NAPR-885 PO; TYLE325T5 PO
[2020-01-24 18:53] LABS: HEMATOCRIT 39.2 % (42.0-52.0); HEMOGLOBIN 13.2 g/dl (13.5-17.5); MEAN CORPUSCULAR HEMOGLOBIN 29.9 pg (27.0-33.0); MEAN CORPUSCULAR HGB CONC 33.7 g/dl (32.0-36.5); MEAN CORPUSCULAR VOLUME 88.7 fl (80.0-96.0); PLATELET COUNT, AUTOMATED 305 10^3/uL (150-450); RED BLOOD COUNT 4.42 10^6/uL (4.30-6.10); WHITE BLOOD COUNT 7.8 10^3/uL (4.0-10.0)
[2020-01-24 19:25] LABS: AMPHETAMINES LEVEL URINE NEGATIVE (NEGATIVE); BARBITURATES URINE NEGATIVE (NEGATIVE); BENZODIAZEPINES URINE NEGATIVE (NEGATIVE); CANNABINOIDS URINE POSITIVE (NEGATIVE); COCAINE METABOLITE URINE NEGATIVE (NEGATIVE); METHADONE URINE NEGATIVE (NEGATIVE); OPIATES URINE NEGATIVE (NEGATIVE); PHENCYCLIDINE URINE NEGATIVE (NEGATIVE)
[2020-01-24 19:27] LABS: ACETAMINOPHEN LEVEL < 2.0 UG/ML (10.0-30.0); ALBUMIN 4.4 GM/DL (3.2-5.2); ALT/SGPT 17 U/L (12-78); BILIRUBIN,DIRECT 0.2 MG/DL (0.0-0.2); BILIRUBIN,TOTAL 0.6 MG/DL (0.2-1.0); BLOOD UREA NITROGEN 15 MG/DL (7-18); CALCIUM LEVEL 9.2 MG/DL (8.5-10.1); CARBON DIOXIDE LEVEL 27 MEQ/L (21-32); CHLORIDE LEVEL 106 MEQ/L (98-107); CREATININE FOR GFR 1.06 MG/DL (0.70-1.30); ETHYL ALCOHOL (ETHANOL) < 0.003 % (0.000-0.010); GLOMERULAR FILTRATION RATE > 60.0 (>60); GLUCOSE, FASTING 99 MG/DL (70-100); POTASSIUM SERUM 3.9 MEQ/L (3.5-5.1); SALICYLATE LEVEL < 1.7 MG/DL (5.0-30.0); SODIUM LEVEL 139 MEQ/L (136-145); THYROID STIMULATING HORMONE 0.599 uIU/ML (0.358-3.740); TOTAL PROTEIN 7.6 GM/DL (6.4-8.2)
[2020-01-24] MEDS ORDERED: ACETAMINOPHEN TAB 650MG DOSE (2X325MG) PO PRN (23:00)
[2020-01-24] MEDS ORDERED: MAALOX 30 ML SUSP *UDC PO PRN (23:00)
[2020-01-24] MEDS ORDERED: MOM 30ML SUSPENSION UDC PO PRN (23:00)
[2020-01-24] MEDS ORDERED: NICOTINE 21MG/24HR 1 EA TRANSDERMAL TD PRN (23:00)
[2020-01-24] MEDS ORDERED: QUEtiapine FUMARATE 100 MG TAB PO SCH (23:00)
[2020-01-24] MEDS ORDERED: OLANZapine ORAL DISINTEGRATING TAB 5MG PO PRN (23:00)
[2020-01-25] MEDS: traZODone 50 MG TAB PO PRN ×2 (01:14→20:26)
[2020-01-25 01:23] VITALS: BP 131/73
[2020-01-25 05:54] VITALS: BP 117/57
[2020-01-25] MEDS ORDERED: INFLUENZA QUADRIVALENT PF VACCINE 0.5ML SYRINGE (90686) IM ONE (09:00)
--- NOTE | 2020-01-25 09:32 | MHHPEPDOC ---
General Legal Status: 9.39 Chief Complaint "I started to share my emotions" History of Present Illness HISTORY OF THE PRESENT ILLNESS: Patient is a 29 -year-old , male, who Presented to [facility] after being brought in for bizarre behavior. The patient reportedly has become increasingly bizarre as per his friends report and needed to be admitted. The patient is met with where he was quite bizarre and elated, seemingly psychotic and manic. The patient reportedly has been acting fairly bizarrely and is not able to contribute much in terms of an interview has he is fairly circumstantial.. Psychiatric Review of Systems Depression (2 or more weeks): denies Nadja (4 or more days of): grandiosity, decreased need for sleep, still with energy, engages in risky behavior Psychosis: paranoia, disorganization PTSD: history of trauma Anxiety: denies Past Psychiatric History Previous Psychiatric Diagnosis: none reported. Previous Psychiatric Admissions: none in chart. Suicide Attempts: unknown. Psychiatric Follow-up: none noted. Psychiatric medications: sertraline, kolopin and trazadone . Past Medical History Medical Problems unknown Family Medical/Psychiatric HX Medical Problems unknown Addiction History alcohol, other (cannabis) Social History Childhood: unknown. Abuse/Trauma:none noted. Current Living Situation: unclear. Education: HS grad. Employment: previously reported to be [place]. Social Support: some friends. Legal: unclear. Marital: unclear. Mental Status Examination General Appearance: unkempt Build: average Demeanor: very figety Eye Contact: intense Activity: average Behavior: cooperative Speech: clear Mood: euphoric Mood "okay" Affect: full Thought Process: circumstantial Thought Content (Delusions): none reported Thought Content (Other): none reported Thought Content (Aggressive): none reported Perception (Hallucinations): none reported Perception (Other): none reported Cognition (Impairment of): none reported Cognition(Intelligence Est.): average Oriented: Awake Insight: poor Judgment: Poor Psychosis: Associations (impaired), Abstract Thinking (impaired) A-FIB/CHADSVASC A-FIB History Current/History of A-Fib/PAF?: No Problem List Problems: (1) Psychosis Status: Acute Response to Treatment: Uncontrolled Discussed With: Nurse Problem Specific Plan: Monitor Clinically Problem Text: start zyprexa 5mg qhs, bipolar? (2) Cannabis abuse Status: Chronic (3) Alcohol use Status: Chronic Problem Text: monitor vitals, if spike will add CIWA Initial Treatment Plan 1. Patient was admitted on a [9.39] status. 2. Complete history was obtained. 3. With patients permission, family will be contacted and database will be expanded. 4. Patients medication regimen will be reviewed and changed accordingly. 5. Patient will be provided with protected environment. 6. Patient will be treated with individual, group, and milieu therapies. 7. Patient will receive supportive psych-education. 8. Discharge planning will commence immediately. 9. Outpatient follow-up treatment will be strongly recommended. 10. The initial treatment plan will focus initially on: * Depression. * Risk for suicide. ESTIMATED LENGTH OF STAY:2-3 DAYS. TIME SPENT COUNSELING AND COORDINATING INITIAL CARE: 70 minutes with greater than 50% on C/C. Vital Signs Vital Signs Date Time Temp Pulse Resp B/P (MAP) Pulse Ox O2 Delivery O2 Flow Rate FiO2 01/25/20 05:54 97.7 61 18 117/57 (77) 01/25/20 01:23 100 Room Air Laboratory Data 24H Labs Laboratory Tests 2 01/24/20 18:39: Nucleated Red Blood Cells % (auto) 0.0, Anion Gap 6L, Glomerular Filtration Rate > 60.0, Calcium Level 9.2, Total Bilirubin 0.6, Direct Bilirubin 0.2, Aspartate Amino Transf (AST/SGOT) 16, Alanine Aminotransferase (ALT/SGPT) 17, Alkaline Phosphatase 72, Total Protein 7.6, Albumin 4.4, Albumin/Globulin Ratio 1.4, Thyroid Stimulating Hormone (TSH) 0.599, Salicylates Level < 1.7L, Urine Opiates Screen NEGATIVE, Urine Methadone Screen NEGATIVE, Acetaminophen Level < 2.0L, Urine Barbiturates Screen NEGATIVE, Urine Phencyclidine Screen NEGATIVE, Urine Amphetamines Screen NEGATIVE, Urine Benzodiazepines Screen NEGATIVE, Urine Cocaine Metabolite Screen NEGATIVE, Urine Cannabinoids Screen POSITIVEH, Ethyl Alcohol Level < 0.003 CBC/BMP Laboratory Tests 01/24/20 18:39 Medications No Active Prescriptions or Reported Meds Allergies Coded Allergies: No Known Allergies (Unverified , 02/09/17) JON YA DO January 25, 2020 09:32
[2020-01-25 15:11] LABS: HIV 1&2 SCREEN CENTAUR NEGATIVE (NEGATIVE)
--- NOTE | 2020-01-25 16:52 | HPEPDOC ---
General Date of Admission January 24, 2020 at 22:51 Date of Service: January 25, 2020 Chief Complaint The patient is a 29-year-old male admitted with a reason for visit of Unspecifed Mood Disorder. Source: Patient Timing/Duration: Day(s) Severity: Mild History of Present Illness Patient is 29 years old male w past medical history of nephrolithiasis, who was admitted in the hospital with unspecified psychosis He denied any cardiovascular problem, breathing problem, GI problem or dysuria. He denies fever, chills, nausea, vomiting, shortness of breath, palpitations, diarrhea or dysuria Home Medications No Active Prescriptions or Reported Meds Allergies Coded Allergies: No Known Allergies (Unverified , 02/09/17) Past Medical History Medical History Nephrolithiasis Family History Patient stated that both parents are healthy Social History * Smoker: Denies Alcohol: Denies Drugs: marijuana A-FIB/CHADSVASC A-FIB History Current/History of A-Fib/PAF?: No Current PO Anticoag Therapy: No Review of Systems Constitutional: Denies: Chills, Fever Eyes: Denies: Pain ENT: Denies: Head Aches Skin: Denies: Rash, Lesions Pulmonary: Denies: Dyspnea, Cough Cardiovascular: Denies: Chest Pain Gastrointestinal: Denies: Nausea, Vomiting Genitourinary: Denies: Dysuria, Frequency Hematologic: Denies: Bruising Endocrine: Denies: Polydipsia, Polyphagia Musculoskeletal: Denies: Neck Pain, Other Symptoms Neurological: Denies: Weakness Psych: Reports: Anxiety Physical Examination General Exam: Positive: Alert, Cooperative Eye Exam: Positive: PERRLA ENT Exam: Positive: Atraumatic Neck Exam: Positive: Supple; Negative: JVD Chest Exam: Positive: Clear to auscultation Heart Exam: Positive: Rate Normal Telemetry: Positive: No significant arrhythmia Abdomen Exam: Positive: Normal bowel sounds Extremity Exam: Negative: Clubbing, Cyanosis Skin Exam: Positive: Nl turgor and temperature Neuro Exam: Positive: Normal Gait, Strength at 5/5 X4 ext Psych Exam: Positive: Anxiety Vital Signs Vital Signs Date Time Temp Pulse Resp B/P (MAP) Pulse Ox O2 Delivery O2 Flow Rate FiO2 01/25/20 05:54 97.7 61 18 117/57 (77) 01/25/20 01:23 100 Room Air Laboratory Data Labs 24H Laboratory Tests 2 01/24/20 18:39: Nucleated Red Blood Cells % (auto) 0.0, Anion Gap 6L, Glomerular Filtration Rate > 60.0, Calcium Level 9.2, Total Bilirubin 0.6, Direct Bilirubin 0.2, Aspartate Amino Transf (AST/SGOT) 16, Alanine Aminotransferase (ALT/SGPT) 17, Alkaline Phosphatase 72, Total Protein 7.6, Albumin 4.4, Albumin/Globulin Ratio 1.4, Thyroid Stimulating Hormone (TSH) 0.599, Salicylates Level < 1.7L, Urine Opiates Screen NEGATIVE, Urine Methadone Screen NEGATIVE, Acetaminophen Level < 2.0L, Urine Barbiturates Screen NEGATIVE, Urine Phencyclidine Screen NEGATIVE, Urine Amphetamines Screen NEGATIVE, Urine Benzodiazepines Screen NEGATIVE, Urine Cocaine Metabolite Screen NEGATIVE, Urine Cannabinoids Screen POSITIVEH, Ethyl Alcohol Level < 0.003, HIV Antigen/Antibody Combo Qual NEGATIVE CBC/BMP Laboratory Tests 01/24/20 18:39 Assessment/Plan Patient is 29 years old male w past medical history of nephrolithiasis, who was admitted in the hospital with unspecified psychosis He denied any cardiovascular problem, breathing problem, GI problem or dysuria. He denies fever, chills, nausea, vomiting, shortness of breath, palpitations, diarrhea or dysuria Problems (1) Psychosis Status: Acute Problem Text: We'll defer treatment to psych team (2) Nephrolithiasis Status: Resolved Problem Text: Follow-up with PCP in the outpatient settings for workup Plan / VTE VTE Prophylaxis Ordered?: No VTE Exclusion Mechanical Proph: Low Risk for VTE JA TORREZ DO January 25, 2020 16:52
[2020-01-25 18:00] VITALS: BP 139/71
[2020-01-25] MEDS ORDERED: OLANZapine ORAL DISINTEGRATING TAB 5MG PO SCH (21:00)
[2020-01-26 06:09] VITALS: BP 112/59
--- NOTE | 2020-01-26 09:07 | MHIPNPDOC ---
[facility] Progress Note Progress Note The patient was seen on 01/26/20. 29-year-old man with likely bipolar disorder is seen in follow-up, he has notably been more controlled, although more superficial today. The patient is generally interested in going home, he reports that the reported statements he had made to friends prior to being admitted were due to him "not liking them". But he stated he had no thoughts of doing them harm and felt that they were unhelpful to him. He's had no behavioral problems overnight and generally has been engaged with treatment, although the staff concerns are primarily that he superficial engage. Vital Signs Vital Signs Date Time Temp Pulse Resp B/P (MAP) Pulse Ox O2 Delivery O2 Flow Rate FiO2 01/26/20 06:09 98.3 102 14 112/59 (76) 01/25/20 01:23 100 Room Air Current Medications Current Medications Medications (Trade) Dose Ordered Sig/Clarisse Route PRN Reason Start Time Stop Time Status Last Admin Dose Admin Acetaminophen (Tylenol Tab) 650 mg Q6HP PRN PO HEADACHE or DISCOMFORT 01/24/20 23:00 Al Hydrox/Mg Hydrox/Simethicone (Mylanta) 30 ml Q4HP PRN PO HEARTBURN/INDIGESTION 01/24/20 23:00 Home Med (Med Rec Complete!) ASDIRECTED XX 01/24/20 21:00 01/24/20 20:56 DC Magnesium Hydroxide (Milk Of Magnesia) 30 ml DAILYPRN PRN PO CONSTIPATION 01/24/20 23:00 Nicotine (Nicoderm Cq 21mg) 1 patch DAILY PRN TD NICOTINE WITHDRAWL 01/24/20 23:00 Olanzapine (ZyPREXA ZYDIS) 5 mg Q4HP PRN PO AGITATION 01/24/20 23:00 01/25/20 01:15 Olanzapine (ZyPREXA ZYDIS) 5 mg QHS PO 01/25/20 21:00 01/25/20 20:27 Quetiapine Fumarate (SEROquel) 100 mg QHS PO 01/24/20 23:00 01/25/20 17:01 DC 01/25/20 01:14 Trazodone HCl (Desyrel) 50 mg QHSP PRN PO INSOMNIA 01/24/20 23:00 01/25/20 20:26 Allergies Coded Allergies: No Known Allergies (Unverified , 02/09/17) Review of Systems Review of Systems Constitutional: Denies: Fever Neurological: Denies: Weakness, Incoordination, Change in speech Mental Status Examination General Appearance: well groomed Build: average Demeanor: average Eye Contact: average Activity: average Behavior: cooperative Mood: euthymic Affect: constricted Thought Process: circumstantial Thought Content (Delusions): none reported Thought Content (Other): none reported Thought Content (Aggressive): none reported Perception (Hallucinations): none reported Perception (Other): none reported Cognition (Impairment of): none reported Cognition(Intelligence Est.): average Oriented: Awake, Alert Insight: improving Judgment: Improving Psychosis: Associations (Improving) Assessment 29-year-old man with likely bipolar disorder is seen in follow-up, it appears that he is making some improvements will observed overnight to determine if he is engaging in a dangerous behavior, if he is not he will likely not meet involuntary criteria to be held against his will. Problem List Problems: (1) Bipolar disorder Status: Acute Response to Treatment: Improving Discussed With: Nurse, Patient Problem Specific Plan: Monitor Clinically Problem Text: Increase Zyprexa 10 mg nightly (2) Cannabis abuse Status: Chronic Problem Text: Recommend referral to substance use treatment Medications No Active Prescriptions or Reported Meds JON YA DO January 26, 2020 09:07
[2020-01-26 18:00] VITALS: BP 109/60
[2020-01-26] MEDS: traZODone 50 MG TAB PO PRN (20:12)
[2020-01-26] MEDS ORDERED: OLANZapine ORAL DISINTEGRATING TAB 5MG PO SCH (21:00)
[2020-01-27 06:19] VITALS: BP 119/64
--- NOTE | 2020-01-27 09:06 | MHIPNPDOC ---
[facility] Progress Note Progress Note DATE OF SERVICE: 01/27/20 HISTORY: . VITAL SIGNS: See below. NEW TEST RESULTS: . CURRENT MEDICATIONS: See below. MENTAL STATUS EXAMINATION: Patient is a -year old male, who is . Speech: Is . Language skills are . Thought processes including: . Thought content: . Abstract reasoning, and computation: . Description of associ ations: . Description of abnormal or psychotic thoughts: . Judgment: . Insight: [very limited, good, fair. poor]. Orientation: . Recent and remote memory: . Attention span and concentration: . Language: . Fund of knowledge: . Mood: . Affect: . DIAGNOSES: 1. . 2. . 3. . ASSESSMENT: MANAGEMENT PLAN: . TIME SPENT: minutes. Vital Signs Vital Signs Date Time Temp Pulse Resp B/P (MAP) Pulse Ox O2 Delivery O2 Flow Rate FiO2 01/27/20 06:19 97.8 69 12 119/64 (82) Room Air 01/25/20 01:23 100 Current Medications Current Medications Medications (Trade) Dose Ordered Sig/Clarisse Route PRN Reason Start Time Stop Time Status Last Admin Dose Admin Acetaminophen (Tylenol Tab) 650 mg Q6HP PRN PO HEADACHE or DISCOMFORT 01/24/20 23:00 Al Hydrox/Mg Hydrox/Simethicone (Mylanta) 30 ml Q4HP PRN PO HEARTBURN/INDIGESTION 01/24/20 23:00 Home Med (Med Rec Complete!) ASDIRECTED XX 01/24/20 21:00 01/24/20 20:56 DC Magnesium Hydroxide (Milk Of Magnesia) 30 ml DAILYPRN PRN PO CONSTIPATION 01/24/20 23:00 Nicotine (Nicoderm Cq 21mg) 1 patch DAILY PRN TD NICOTINE WITHDRAWL 01/24/20 23:00 Olanzapine (ZyPREXA ZYDIS) 5 mg Q4HP PRN PO AGITATION 01/24/20 23:00 01/25/20 01:15 Olanzapine (ZyPREXA ZYDIS) 5 mg QHS PO 01/25/20 21:00 01/26/20 13:14 DC 01/25/20 20:27 Olanzapine (ZyPREXA ZYDIS) 10 mg QHS PO 01/26/20 21:00 01/26/20 20:10 Quetiapine Fumarate (SEROquel) 100 mg QHS PO 01/24/20 23:00 01/25/20 17:01 DC 01/25/20 01:14 Trazodone HCl (Desyrel) 50 mg QHSP PRN PO INSOMNIA 01/24/20 23:00 01/26/20 20:12 Allergies Coded Allergies: No Known Allergies (Unverified , 02/09/17) JON YA DO January 27, 2020 09:06
[2020-01-27] MEDS ORDERED: OLAN10TA2 PO (10:15)
[2020-01-27] MEDS ORDERED: NICO21PAT TD (10:15)
--- NOTE | 2020-02-01 08:44 | MHDSPDOC ---
[facility] Discharge Summary Discharge Summary DATE OF ADMISSION: January 24, 2020 at 22:51 DATE OF DISCHARGE: January 27, 2020 at 13:55 DISCHARGE DIAGNOSES: 1. Bipolar disorder, type I, in remission. 2. Cannabis use disorder. REASON FOR ADMISSION: 29-year-old man is admitted after making unusual statements, he is been acting bizarre and his friends bring him in out of concern CONSULTANTS INVOLVED: none TREATMENT AND PROGRESS ON THE UNIT :. The patient is admitted to the inpatient mental health unit where he was evaluated and started on Zyprexa 5 mg nightly increase to 10 mg nightly, he made positive changes in generally was amenable without any behavioral problems. He was notable for inappropriate laughing at times, but was generally amenable to our interventions. His friends did relay some concerns about his behavior prior to him coming into the unit, however, as a psychosis resolved. He stated that he had no intentions of harming anyone and was well behaved in our unit. DISCHARGE ASSESSMENT: 29-year-old man with a history of bipolar disorder likely presents and is treated with sufficient treatment, at the time of discharge he does not meet involuntary criteria in my opinion as he has a normal mental status exam, has been in behavioral control his entire admission and has not made any threats towards himself or others, and thus I cannot make an argument to hold him against his will as he is made the request to leave. MENTAL STATUS EXAMINATION ON DISCHARGE: General: Well dressed with good hygiene Speech: Spontaneous and fluid Thought processes: Linear and logical Thought content: Future orientated Abstract reasoning, and computation: Intact Description of associations: Intact Description of abnormal or psychotic thoughts:Denies any suicidal or homicidal ideation. Denies any auditory or visual hallucinations. Does not appear to be responding to internal stimuli. Does not appear to be endorsing any bizarre or paranoid ideation. Judgment: fair Insight: fair Orientation: Alert and orientated 3 Recent and remote memory: Intact Attention span and concentration: Intact Fund of knowledge: Adequate Mood: "okay" Affect: Euthymic with a full range PLAN/FOLLOWUP ARRANGEMENTS: follow-up made. The amount of time spent in the coordination of care for this patient was approximately 45 minutes. Vital Signs/I&Os Vital Signs Date Time Temp Pulse Resp B/P (MAP) Pulse Ox O2 Delivery O2 Flow Rate FiO2 01/27/20 06:19 97.8 69 12 119/64 (82) Room Air Medications Scheduled Olanzapine (Olanzapine) 10 Mg Tablet, 1 TAB PO QPM for thoguth for 7 Days, #7 Scheduled PRN Nicotine (Nicotine Patch) 21 Mg Patch.td24, 1 PATCH TD DAILY PRN for NICOTINE WITHDRAWL for 30 Days, #30 Allergies Coded Allergies: No Known Allergies (Unverified , 02/09/17) JON YA DO Feb 01, 2020 08:44
== END 2020-01-27 13:55 | disposition home or self-care (01) | DRG 753 ==
LOC: M ED 18:07 → M ED INP 22:51 → M PSY 01-25 00:33
PROVIDERS: ADMIT Psychiatry & Neurology Psychiatry; ATTEND Psychiatry & Neurology Addiction Medicine
DX: F31.9 Bipolar disorder, unspecified (principal); F12.10 Cannabis abuse, uncomplicated; F10.10 Alcohol abuse, uncomplicated; Z87.442 Personal history of urinary calculi

== ENCOUNTER 2024-06-24 08:44 | Emergency (ER) | payer OTHER, SELFPAY ==
[~2024-06-24] VITALS: Ht 180.3 cm; Wt 95.8 kg
[~2024-06-24 08:44] MED LIST changes: +NICO21PAT TD; +OLAN1TAB20 PO
[2024-06-24 08:45] VITALS: TEMP 97.2
[2024-06-24] MEDS ORDERED: HYDR-3363 (08:52)
[2024-06-24] MEDS ORDERED: FLUO-365 (08:52)
[2024-06-24] MEDS ORDERED: ARIP1TAB6 (08:52)
[2024-06-24 12:26] LABS: BASO % 0.4 % (0.0-1.0); EOS # 0.4 10^3/uL (0.0-0.5); EOS % 5.1 % (0.0-3.0); HEMATOCRIT 36.9 % (42.0-52.0); HEMOGLOBIN 12.4 g/dl (13.5-17.5); LYMPH # 2.8 10^3/uL (1.5-5.0); LYMPH % 36.4 % (24.0-44.0); MEAN CORPUSCULAR HGB CONC 33.6 g/dl (32.0-36.5); MEAN CORPUSCULAR VOLUME 89.1 fl (80.0-96.0); MONO # 0.6 10^3/uL (0.0-0.8); MONO % 8.1 % (2.0-8.0); NEUTROPHILS # 3.9 10^3/uL (1.5-8.5); NEUTROPHILS % 49.7 % (36.0-66.0); PLATELET COUNT, AUTOMATED 241 10^3/uL (150-450); RED BLOOD COUNT 4.14 10^6/uL (4.30-6.10); WHITE BLOOD COUNT 7.8 10^3/uL (4.0-10.0)
[2024-06-24 12:54] LABS: ETHYL ALCOHOL (ETHANOL) 0.004 % (0.000-0.010)
[2024-06-24 12:55] LABS: ALBUMIN 3.5 G/DL (3.2-5.2); ALKALINE PHOSPHATASE 92 U/L (46-116); ALT/SGPT 20 U/L (7.0-40); AST/SGOT 20 U/L (<34); BILIRUBIN,DIRECT 0.1 MG/DL (<0.4); BILIRUBIN,TOTAL 0.4 MG/DL (0.3-1.2); BLOOD UREA NITROGEN 19 MG/DL (9-23); CALCIUM LEVEL 9.1 MG/DL (8.5-10.1); CARBON DIOXIDE LEVEL 27 MMOL/L (20-31); CHLORIDE LEVEL 111 MMOL/L (98-107); CREATININE FOR GFR 0.88 MG/DL (0.70-1.30); GLOMERULAR FILTRATION RATE > 60.0 (>60); GLUCOSE, FASTING 108 MG/DL (60-100); POTASSIUM SERUM 3.7 MMOL/L (3.5-5.1); SODIUM LEVEL 141 MMOL/L (136-145); TOTAL PROTEIN 6.3 G/DL (5.7-8.2)
[2024-06-24 13:17] LABS: AMPHETAMINES LEVEL URINE NEGATIVE (NEGATIVE); BARBITURATES URINE NEGATIVE (NEGATIVE); BENZODIAZEPINES URINE NEGATIVE (NEGATIVE); COCAINE METABOLITE URINE NEGATIVE (NEGATIVE); METHADONE URINE NEGATIVE (NEGATIVE); OPIATES URINE NEGATIVE (NEGATIVE); PHENCYCLIDINE URINE NEGATIVE (NEGATIVE)
[2024-06-24 13:20] LABS: CANNABINOIDS URINE POSITIVE (NEGATIVE)
[2024-06-24 14:03] VITALS: BP 109/66; O2SAT 97
== END 2024-06-24 14:13 | disposition home or self-care (01) ==
LOC: M ED 08:44
DX: R56.9 Unspecified convulsions (principal); F41.9 Anxiety disorder, unspecified; F32.A Depression, unspecified; Z87.442 Personal history of urinary calculi

== ENCOUNTER 2024-09-04 17:53 | Emergency (ER) | payer OTHER ==
[~2024-09-04] VITALS: Ht 180.3 cm; Wt 99.1 kg
[~2024-09-04 17:53] MED LIST changes: +ARIP1TAB6; +FLUO-365; +HYDR-3363
[2024-09-04 17:57] VITALS: BP 120/80; TEMP 97.3; O2SAT 96
[2024-09-04] MEDS ORDERED: RABIES IMMUNE GLOBULIN 1500 INTERNATIONAL UNIT/5ML VIAL IM.IMMUN ONE (21:10)
[2024-09-04] MEDS: RABIES VACCINE HUMAN 2.5 INTERNATIONAL UNITS/ML VIAL (IMOVAX) IM ONE (21:13)
[2024-09-04] MEDS: BOOSTRIX VACCINE (TETANUS/DIPHTH/ACEL. PERTUSSIS) 0.5ML SYR IM ONE (21:15)
[2024-09-04] MEDS ORDERED: RABIES IMMUNE GLOBULIN 300 INTERNATIONAL UNITS/1ML VIAL IM.IMMUN ONE (21:15)
[2024-09-04] MEDS: RABIES IMMUNE GLOBULIN 300 INTERNATIONAL UNITS/1ML VIAL IM.IMMUN ONE (21:28)
[2024-09-04] MEDS: RABIES IMMUNE GLOBULIN 1500 INTERNATIONAL UNIT/5ML VIAL IM.IMMUN ONE (21:32)
[2024-09-04] MEDS ORDERED: AMOX875T2 PO (22:13)
[2024-09-04] MEDS ORDERED: CVS1CAP2 PO (22:18)
[2024-09-04] MEDS: AUGMENTIN 875 MG TAB PO ONE (22:20)
== END 2024-09-04 22:26 | disposition home or self-care (01) ==
LOC: M ED 17:53
DX: S61.431A Puncture wound without foreign body of right hand, initial encounter (principal); S61.432A Puncture wound without foreign body of left hand, initial encounter; W55.01XA Bitten by cat, initial encounter; Y92.009 Unspecified place in unspecified non-institutional (private) residence as the place of occurrence of the external cause; Y93.9 Activity, unspecified; Y99.9 Unspecified external cause status; Z20.3 Contact with and (suspected) exposure to rabies; Z23 Encounter for immunization

== ENCOUNTER 2024-09-07 08:05 | Emergency (ER) | payer OTHER ==
[~2024-09-07] VITALS: Ht 180.3 cm; Wt 101.2 kg
[~2024-09-07 08:05] MED LIST changes: +AMOX875T2 PO; +CVS1CAP2 PO
[2024-09-07] MEDS: RABIES VACCINE HUMAN 2.5 INTERNATIONAL UNITS/ML VIAL (IMOVAX) IM ONE (09:44)
[2024-09-07 10:12] VITALS: BP 121/72; TEMP 97; O2SAT 98
== END 2024-09-07 10:13 | disposition home or self-care (01) ==
LOC: M ED 08:05
DX: Z20.3 Contact with and (suspected) exposure to rabies (principal); Z23 Encounter for immunization; F41.9 Anxiety disorder, unspecified; F32.A Depression, unspecified; Z79.899 Other long term (current) drug therapy

== ENCOUNTER 2024-09-11 07:46 | Emergency (ER) | payer OTHER ==
[~2024-09-11] VITALS: Ht 180.3 cm; Wt 99.3 kg
[2024-09-11] MEDS: RABIES VACCINE HUMAN 2.5 INTERNATIONAL UNITS/ML VIAL (IMOVAX) IM ONE (08:15)
[2024-09-11 08:19] VITALS: BP 117/60; TEMP 97.8; O2SAT 97
== END 2024-09-11 08:30 | disposition home or self-care (01) ==
LOC: M ED 07:46
DX: Z23 Encounter for immunization (principal); Z20.1 Contact with and (suspected) exposure to tuberculosis

== ENCOUNTER 2024-09-18 07:26 | Emergency (ER) | payer OTHER ==
[~2024-09-18] VITALS: Ht 180.3 cm; Wt 101.2 kg
[2024-09-18 07:29] VITALS: TEMP 98.1
[2024-09-18 07:30] VITALS: BP 104/59; O2SAT 97
[2024-09-18] MEDS: RABIES VACCINE HUMAN 2.5 INTERNATIONAL UNITS/ML VIAL (IMOVAX) IM ONE (08:30)
== END 2024-09-18 08:32 | disposition home or self-care (01) ==
LOC: M ED 07:26
DX: Z20.3 Contact with and (suspected) exposure to rabies (principal); Z23 Encounter for immunization; Z79.899 Other long term (current) drug therapy

== ENCOUNTER 2025-03-30 09:26 | Emergency (ER) | payer OTHER ==
[~2025-03-30] VITALS: Ht 180.3 cm; Wt 100.7 kg
[~2025-03-30 09:26] MED LIST changes: -FLOM0.4C39 PO; +TAMS-18 PO
[2025-03-30] MEDS ORDERED: ACET1TAB55 PO (09:32)
[2025-03-30 09:53] LABS: NITRITE, URINE MANUAL RFX NEGATIVE (NEGATIVE); PROTEIN, URINE MANUAL REFLEX 2+ mg/dL (NEGATIVE); SP GRAVITY,URINE MANUAL REFLEX 1.025 (1.002-1.035); UROBILINOGEN, UA MANUAL REFLEX NORMAL (NORMAL)
[2025-03-30 09:54] LABS: KETONE, URINE MANUAL REFLEX NEGATIVE (NEGATIVE)
[2025-03-30 10:04] LABS: WBC, URINE MAN RFX 0-1 /hpf (0-3)
[2025-03-30] MEDS: ACETAMINOPHEN 500 MG TAB PO ONE (10:04)
[2025-03-30 10:05] LABS: HYALINE CAST, URINE RFX NONE SEEN /lpf (0-1); MICROSCOPIC EXAM RFX PERFORMED; RBC, URINE MAN REFLEX 0-1 /hpf (0-3); SQUAMOUS EPITHELIAL URINE RFX NONE SEEN /hpf (SMALL AMT)
[2025-03-30 10:14] LABS: BASO # 0.0 10^3/uL (0.0-0.2); BASO % 0.4 % (0.0-1.0); EOS # 0.0 10^3/uL (0.0-0.5); EOS % 0.0 % (0.0-3.0); LYMPH # 7.0 10^3/uL (1.5-5.0); LYMPH % 64.1 % (24.0-44.0); MONO # 1.4 10^3/uL (0.0-0.8); MONO % 12.6 % (2.0-8.0); NEUTROPHILS # 2.5 10^3/uL (1.5-8.5); NEUTROPHILS % 22.4 % (36.0-66.0); PLATELET COUNT, AUTOMATED 254 10^3/uL (150-450)
[2025-03-30] MEDS: ONDANSETRON 4MG 2ML VIAL IV ONE (10:16)
[2025-03-30] MEDS: KETOROLAC 30 MG/ML 1 ML VIAL IV ONE (10:17)
[2025-03-30] MEDS: NS (Normal Saline) 0.9% 1,000 ML IV ONE (10:17)
[2025-03-30 10:35] LABS: ALT/SGPT 29.0 U/L (7.0-40); AST/SGOT 43.0 U/L (<34); CALCIUM LEVEL 8.6 MG/DL (8.5-10.1); CARBON DIOXIDE LEVEL 25.0 MMOL/L (20-31); CHLORIDE LEVEL 101.0 MMOL/L (98-107); CREATININE FOR GFR 1.36 MG/DL (0.70-1.30); GLOMERULAR FILTRATION RATE 68.7 (>60); POTASSIUM SERUM 4.5 MMOL/L (3.5-5.1); SODIUM LEVEL 139.0 MMOL/L (136-145)
[2025-03-30] MEDS ORDERED: ISOVUE-370 76% 100 ML VIAL As Ordered ONE (10:49)
[2025-03-30] MEDS ORDERED: CIPR500T39 PO (12:56)
[2025-03-30 13:00] VITALS: BP 97/58; TEMP 97.9; O2SAT 95
== END 2025-03-30 13:08 | disposition home or self-care (01) ==
LOC: M ED 09:26
DX: N12 Tubulo-interstitial nephritis, not specified as acute or chronic (principal); Z87.442 Personal history of urinary calculi
CPT/HCPCS: 74177; 80053; 81000; 81015; 83605; 83690; 85025; 87880; 96374; 96375; 99284; J1885; J2405; Q9967